=== PATIENT | female | born 1985 | race Caucasian/White ===

== ENCOUNTER → 2018-03-25 | Outpatient (CLI) | payer OTHER, BC | LOC: EDBD 09:28 → LAB 09:28 | PROVIDERS: ATTEND Obstetrics & Gynecology Reproductive Endocrinology | DX: N97.9 Female infertility, unspecified (principal); Z32.01 Encounter for pregnancy test, result positive | CPT/HCPCS: 36415; 84144; 84702 ==

== ENCOUNTER → 2018-03-27 | Outpatient (CLI) | payer OTHER, BC | LOC: LAB 09:13 | PROVIDERS: ATTEND Obstetrics & Gynecology Reproductive Endocrinology | DX: N97.9 Female infertility, unspecified (principal); Z32.01 Encounter for pregnancy test, result positive | CPT/HCPCS: 36415; 84144; 84702 ==